=== PATIENT | female | born 1995 | race Caucasian/White ===

== ENCOUNTER 2018-06-29 00:03 | Emergency (ER) | payer OTHER, MEDICAID ==
[~2018-06-29] VITALS: Ht 160 cm; Wt 69.5 kg
[~2018-06-29 00:03] MED LIST: NITR100C6 PO; ONDA4TAB6 PO
[2018-06-29 00:54] LABS: HCG SERUM QL POSITIVE
[2018-06-29 01:11] LABS: CLARITY,URINE CLEAR (Clear); COLOR,URINE YELLOW (Yellow); GLUCOSE, URINE NEGATIVE (Neg); KETONES,URINE NEGATIVE (Neg); LEUKOCYTE ESTERASE ,URINE SMALL (Neg); NITRITES, URINE NEGATIVE (Neg); OCCULT BLOOD,URINE MODERATE (Neg); PROTEIN,URINE NEGATIVE (Neg); UROBILINOGEN,URINE 0.2 E.U/dL (0.2-1.0)
[2018-06-29 01:12] LABS: UA COLLECTION TYPE CLN CATCH MIDSTREAM
[2018-06-29 01:30] LABS: BACTERIA,URINE FEW /HPF (Neg); RBC,URINE NONE SEEN /HPF (0-2); SQUAMOUS EPITHELIAL CELL,UR MANY /LPF (FEW); WBC,URINE 0-4 /HPF (0-4)
[2018-06-29 01:35] LABS: BASOPHILS % (AUTO) 0.4 % (0-1); EOSINOPHILS # (AUTO) 0.3 X10'3 (0-0.9); EOSINOPHILS % (AUTO) 2.8 % (0-6); HEMATOCRIT 37.7 % (35.0-45.0); HEMOGLOBIN 12.6 g/dl (12.0-16.0); LYMPHOCYTES # (AUTO) 3.2 X10'3 (1.1-4.8); LYMPHOCYTES % (AUTO) 29.4 % (21-51); MEAN CORPUSCULAR HEMOGLOBIN 27.5 PG (27.0-31.0); MEAN CORPUSCULAR HGB CONC 33.5 % (33.0-36.5); MEAN PLATELET VOLUME 8.4 FL (7.4-10.4); MONOCYTES # (AUTO) 0.6 X10'3 (0-0.9); MONOCYTES % (AUTO) 5.8 % (2-12); NEUTROPHILS # (AUTO) 6.9 X10'3 (1.8-7.7); NEUTROPHILS % (AUTO) 61.6 % (42-75); PLATELET COUNT 323 X10'3 (140-440); RED CELL DISTRIBUTION WIDTH 14.4 % (11.5-14.5)
[2018-06-29 02:09] LABS: ALBUMIN 3.3 G/DL (3.4-5.0); ANION GAP 8 (8-16); BLOOD UREA NITROGEN 7 MG/DL (7-18); BUN/CREATININE RATIO 12.1 (6.6-38.0); CALCIUM 9.5 MG/DL (8.5-10.1); CHLORIDE 103 MMOL/L (99-107); CREATININE 0.58 MG/DL (0.40-0.90); GLUCOSE 83 MG/DL (70-104); POTASSIUM 3.7 MMOL/L (3.5-5.1); SODIUM 138 MMOL/L (135-145); eGFR > 90 ML/MIN
[2018-06-29 02:11] LABS: BETA HCG,QUANTITATIVE 41642 mIU/ml
[2018-06-29 03:35] VITALS: BP 112/64
== END 2018-06-29 03:37 | disposition home or self-care (01) ==
LOC: ER 00:04
DX: O20.0 Threatened abortion (principal); Z3A.08 8 weeks gestation of pregnancy; Z90.89 Acquired absence of other organs; Z88.0 Allergy status to penicillin; Z88.1 Allergy status to other antibiotic agents; Z79.899 Other long term (current) drug therapy
CPT/HCPCS: 36415; 80048; 81001; 84702; 84703; 85025; 87088; 99284

== ENCOUNTER 2018-06-29 11:28 | Emergency (ER) | payer MEDICAID, OTHER ==
[~2018-06-29] VITALS: Ht 160 cm; Wt 66.0 kg
[2018-06-29 13:43] VITALS: BP 13/73
== END 2018-06-29 14:47 | disposition home or self-care (01) ==
LOC: ER 11:29
DX: O20.0 Threatened abortion (principal); Z88.0 Allergy status to penicillin; Z88.1 Allergy status to other antibiotic agents; Z79.899 Other long term (current) drug therapy; Z90.89 Acquired absence of other organs; Z3A.01 Less than 8 weeks gestation of pregnancy
CPT/HCPCS: 76801; 99284

== ENCOUNTER 2020-11-21 21:18 | Emergency (ER) | payer MEDICAID ==
[~2020-11-21] VITALS: Ht 162.6 cm; Wt 69.2 kg
[2020-11-21 21:22] VITALS: BP 133/94
== END 2020-11-21 22:18 | disposition home or self-care (01) ==
LOC: ER 21:19
DX: L50.9 Urticaria, unspecified (principal); T45.0X5A Adverse effect of antiallergic and antiemetic drugs, initial encounter; Z90.89 Acquired absence of other organs; Z98.890 Other specified postprocedural states; Z88.1 Allergy status to other antibiotic agents; Z88.0 Allergy status to penicillin; Z79.899 Other long term (current) drug therapy; Y92.89 Other specified places as the place of occurrence of the external cause
CPT/HCPCS: 99281

== ENCOUNTER 2020-11-24 01:46 | Emergency (ER) | payer MEDICAID ==
[~2020-11-24] VITALS: Ht 160 cm; Wt 78.2 kg
[2020-11-24 01:46] VITALS: BP 133/88
[2020-11-24] MEDS ORDERED: diphenhydrAMINE 25 MG/10 ML UD oral solution PO ONE (02:25)
== END 2020-11-24 03:21 | disposition home or self-care (01) ==
LOC: ER 01:46
DX: Z02.89 Encounter for other administrative examinations (principal); R06.02 Shortness of breath; F41.9 Anxiety disorder, unspecified; F32.9 Major depressive disorder, single episode, unspecified; Z90.89 Acquired absence of other organs; Z88.0 Allergy status to penicillin; Z88.1 Allergy status to other antibiotic agents; Z79.899 Other long term (current) drug therapy
CPT/HCPCS: 93005; 99283; 99284

== ENCOUNTER 2023-07-28 22:14 | Emergency (ER) | payer MEDICAID ==
[~2023-07-28] VITALS: Ht 160 cm; Wt 88.2 kg
[2023-07-28 23:07] LABS: BASOPHILS % (AUTO) 0.6 % (0-1); HEMOGLOBIN 13.4 g/dl (12.0-16.0); MEAN PLATELET VOLUME 7.3 FL (7.4-10.4)
[2023-07-28 23:09] LABS: EOSINOPHILS % (AUTO) 0.1 % (0-6); HEMATOCRIT 39.6 % (35.0-45.0); LYMPHOCYTES # (AUTO) 0.6 X10'3 (1.1-4.8); LYMPHOCYTES % (AUTO) 13.3 % (21-51); MEAN CORPUSCULAR HEMOGLOBIN 25.9 PG (27.0-31.0); MEAN CORPUSCULAR HGB CONC 33.8 g/dL (33.0-36.5); MEAN CORPUSCULAR VOLUME 76.7 FL (78-98); MONOCYTES # (AUTO) 0.6 X10'3 (0-0.9); MONOCYTES % (AUTO) 12.2 % (2-12); NEUTROPHILS # (AUTO) 3.5 X10'3 (1.8-7.7); NEUTROPHILS % (AUTO) 73.8 % (42-75); PLATELET COUNT 275 X10'3 (140-440); RED BLOOD COUNT 5.16 X10'6 (4.20-5.60); RED CELL DISTRIBUTION WIDTH 14.5 % (11.5-14.5); WHITE BLOOD COUNT 4.8 X10'3 (4.5-11.0)
[2023-07-28 23:17] LABS: ALANINE AMINOTRANSFERASE 18 U/L (12-78); ALBUMIN 3.9 G/DL (3.4-5.0); ALBUMIN/GLOBULIN RATIO 0.9 (1.1-1.5); ALKALINE PHOSPHATASE 83 IU/L (46-116); ANION GAP 16 (8-16); ASPARTATE AMINO TRANSFERASE 17 U/L (10-37); BILIRUBIN,TOTAL 0.8 MG/DL (0.1-1.0); BLOOD UREA NITROGEN 11 MG/DL (7-18); BUN/CREATININE RATIO 10.9 (10.0-20.0); CALCIUM 9.3 MG/DL (8.5-10.1); CHLORIDE 100 MMOL/L (99-107); CREATININE 1.01 MG/DL (0.40-0.90); GLUCOSE 114 MG/DL (70-104); POTASSIUM 3.2 MMOL/L (3.5-5.1); SODIUM 136 MMOL/L (135-145); TOTAL CARBON DIOXIDE 20.5 MMOL/L (24-32); TOTAL PROTEIN 8.4 G/DL (6.4-8.2); eCRCL 67 ML/MIN; eGFR 64 ML/MIN
[2023-07-28] MEDS ORDERED: normal saline 1000ml 1,000 ML IV ONE ×2 (23:20→23:45)
[2023-07-28 23:25] LABS: PRO BRAIN NATRIURETIC PEPTIDE < 30 PG/ML (0-125)
[2023-07-28] MEDS ORDERED: DICL50TA6 PO (23:42)
[2023-07-28] MEDS ORDERED: ONDA4TAB12 PO (23:42)
[2023-07-29] MEDS ORDERED: ondansetron/PF 4mg/2ml inj IV ONE (00:05)
[2023-07-29] MEDS ORDERED: potassium Cl 20 mEq SR tablet PO STA (00:08)
[2023-07-29] MEDS ORDERED: famotidine 20mg tablet PO ONE (00:45)
[2023-07-29] MEDS ORDERED: ketorolac trometh. 30mg/ml inj. IV ONE (01:15)
[2023-07-29 01:36] LABS: BILIRUBIN,URINE NEGATIVE (Neg); CLARITY,URINE CLOUDY (Clear); COLOR,URINE YELLOW (Yellow); GLUCOSE, URINE NEGATIVE (Neg); KETONES,URINE 40 mg/dl (Neg); LEUKOCYTE ESTERASE ,URINE MODERATE (Neg); NITRITES, URINE NEGATIVE (Neg); OCCULT BLOOD,URINE NEGATIVE (Neg); PROTEIN,URINE NEGATIVE (Neg)
[2023-07-29 01:42] LABS: BACTERIA,URINE 3+ /HPF (Neg); SQUAMOUS EPITHELIAL CELL,UR MANY /LPF (FEW); UA COLLECTION TYPE CLN CATCH MIDSTREAM
[2023-07-29 01:44] LABS: TRANSITIONAL EPI CELLS,URINE FEW /HPF; WBC,URINE 30-50 /HPF (0-4)
[2023-07-29] MEDS ORDERED: normal saline 1000ml 1,000 ML IV ONE (02:05)
[2023-07-29] MEDS ORDERED: CEPH250T PO (02:05)
[2023-07-29] MEDS ORDERED: CefTRIAXone 2gm/D5W 50ml BAG 50 ML IV ONE (02:05)
[2023-07-29] MEDS ORDERED: acetaminophen 325mg tablet PO ONE (02:10)
[2023-07-29 02:13] VITALS: BP 116/62; PULSE 80; RESP 16; TEMP 99.9; O2SAT 96
--- NOTE | 2023-07-29 03:59 | NUR ---
iv dc'd pt being discharged dressing applied
== END 2023-07-29 04:01 | disposition home or self-care (01) ==
LOC: ER 22:15
DX: E86.0 Dehydration (principal); Z20.822 Contact with and (suspected) exposure to COVID-19; R11.2 Nausea with vomiting, unspecified; B34.9 Viral infection, unspecified; N39.0 Urinary tract infection, site not specified; Z88.0 Allergy status to penicillin; Z79.2 Long term (current) use of antibiotics; Z79.899 Other long term (current) drug therapy
CPT/HCPCS: 36415; 71045; 80053; 81001; 83605; 83880; 84145; 84484; 85025; 87040; 87502; 87503; 87811; 93005; 96361; 96365; 96375; 99285; J0696; J1885; J2405; J7030; 96374